=== PATIENT | male | born 1935 | race Caucasian/White ===

== ENCOUNTER 2018-10-31 18:39 | Observation (INO) | payer OTHER, SELFPAY ==
--- NOTE | 2018-10-31 | DI.US.S_ITS ---
PROCEDURE: US PERIPH VENOUS LOW EXTREM BI INDICATIONS: Pulmonary Embolism. TECHNIQUE: Real-time imaging, as well as color and pulse Doppler interrogation, were performed of the deep veins of both legs from the inguinal ligament to the popliteal fossa. COMPARISON: None. FINDINGS: Right: The common femoral, femoral and popliteal veins are normally compressible, and free of intraluminal thrombus. Color and pulse Doppler demonstrate normal phasic intravascular flow. There is Left: The common femoral, femoral and popliteal veins are normally compressible, and free of intraluminal thrombus. Color and pulse Doppler demonstrate normal phasic intravascular flow. There is nonocclusive thrombus present within left peroneal vein. IMPRESSION: 1. Nonocclusive thrombosis involving the left peroneal vein. A repeat study in one week could be performed to assess for proximal propagation as clinically indicated. 2. No DVT identified within the left lower extremity. Report given to Dr. Agustin at 1120 hrs. 11/01/18. Dictated by: Lucian MODI Interpreted: Montrell Gunter MD on 11/01/2018 at 11:04 Approved by: Montrell Gunter M.D. on 11/01/2018 at 13:34
[2018-10-31 18:48] VITALS: BP 166/87; PULSE 87; RESP 15; TEMP 36.6; O2SAT 98
--- NOTE | 2018-10-31 18:59 | DI.RAD.S_ITS ---
PROCEDURE: XR CHEST 2V INDICATIONS: Right sided chest pain TECHNIQUE: 2 views of the chest were acquired. COMPARISON: None. FINDINGS: Surgical changes and devices: None. Lungs and pleura: Lungs are clear. No pleural effusions or pneumothorax. Mediastinum: Mediastinal contours are normal. Heart size is normal. Bones and chest wall: No suspicious bony abnormalities. Soft tissues appear unremarkable. IMPRESSION: Normal for age, source of current right-sided chest pain symptoms is not seen. Dictated by: Zeus Denson M.D. on 10/31/2018 at 19:19 Approved by: Zeus Denson M.D. on 10/31/2018 at 19:19
[2018-10-31 19:14] LABS: Add Manual Diff / Slide Review NO; Basophils Absolute Auto 100 /uL (0-100); Basophils Percent Auto 0.5 % (0-2); Eosinophils Absolute Auto 300 /uL (0-450); Eosinophils Percent Auto 3.1 % (2-4); Hematocrit 42.1 % (41-53); Hemoglobin 14.4 g/dL (13.5-17.5); Lymphocytes Absolute Auto 1800 /uL (1100-4500); Lymphocytes Percent Auto 16.8 % (25-40); Mean Corpuscular HGB Conc 34.1 % (30-36); Mean Corpuscular Hemoglobin 30.7 PG (26-34); Mean Corpuscular Volume 89.9 fL (80-100); Monocytes Absolute Auto 1200 /uL (0-900); Monocytes Percent Auto 10.7 % (3-14); Neutrophils Absolute Auto 7500 /uL (1500-7000); Neutrophils Percent Auto 68.9 % (50-75); Platelet Count 250 X10^3/uL (150-400); Red Blood Cell Count 4.69 X10^6/uL (4.5-5.9); Red Cell Distribution Width 13.7 % (11.6-14.8); White Blood Cell Count 10.9 X10^3/uL (4.5-11.0)
[2018-10-31 19:19] LABS: D Dimer 502 ng/mL (<230); PTT Partial Thromboplastin Tim 37 SECONDS (26.4-36.2)
[2018-10-31 19:20] LABS: Prothrombin Time 11.9 SECONDS (10.1-12.7)
[2018-10-31 19:21] LABS: Creatine Kinase 74 U/L (55-170)
[2018-10-31] MEDS: LIDOCAINE PATCH 1 EACH ADH..PATCH TOP (19:21)
[2018-10-31 19:22] LABS: BUN Creatinine Ratio 14.4 (6-22); Blood Urea Nitrogen 13 mg/dL (9-20); Calcium 9.8 mg/dL (8.4-10.2); Carbon Dioxide 29 mmol/L (22-32); Chloride 98 mmol/L (98-107); Estimated Glomerular Filt Rate > 60.0 mL/min (>60); Glucose 114 mg/dL (80-110); HEMOLYSIS 27 (0-50); Magnesium 1.5 mg/dL (1.6-2.3); Sodium 138 mmol/L (137-145)
[2018-10-31 19:33] LABS: Troponin I 0.019 ng/mL (0.01-0.034)
--- NOTE | 2018-10-31 19:41 | DI.CT.S_ITS ---
PROCEDURE: CT ANGIO CHEST PE PROTOCOL INDICATIONS: pleuritic chest pain, recent travel, elevated D dimer TECHNIQUE: After the administration of intravenous contrast, 2 mm thick sections acquired from the pulmonary apices to the posterior costophrenic angles. 3-dimensional maximum intensity projection (MIP) coronal and sagittal reformats were then acquired through the thorax. For radiation dose reduction, the following was used: automated exposure control, adjustment of mA and/or kV according to patient size. COMPARISON: None. FINDINGS: Image quality: Excellent. Pulmonary arteries: Pulmonary arteries are normal in size, but demonstrate definite multifocal intraluminal filling defects diagnostic of central pulmonary embolism. These emboli appear acute, are best seen at the right lung base but also present at the left lower lobe, left upper lobe, and the right upper lobe. Lungs and pleura: Lungs are clear. No pleural effusions or pneumothorax. Central and peripheral airways are patent. Mediastinum: Heart size is normal, without pericardial effusion. No mediastinal or hilar adenopathy. Thoracic aorta is normal in caliber and enhancement. Esophagus is normal in caliber, without hiatal hernia. Bones and chest wall: No suspicious bony lesions. Ribs and thoracic spine appear intact throughout. Thyroid gland appears normal where well seen.. No axillary or supraclavicular adenopathy. Abdomen: Visualized upper abdominal solid organs appear normal in the early arterial phase of enhancement. IMPRESSION: Scattered bilateral pulmonary emboli most prominently seen at the right lower lobe but also present within the left lower lobe, and both upper lobes. A no airspace disease is seen that would indicate presence of pulmonary infarction. Findings immediately called to the emergency room physician caring for the patient. Dictated by: Zeus Denson M.D. on 10/31/2018 at 20:25 Approved by: Zeus Denson M.D. on 10/31/2018 at 20:30
[2018-10-31 19:54] LABS: Bacteria Urine None Seen
[2018-10-31 20:08] LABS: RBC Urine 1-5/HPF (0-5/HPF); WBC Urine None Seen (0-5/HPF)
[2018-10-31 20:09] LABS: Culture Indicated Urine Cult Not Indicated; Mucus Urine 1+ (Negative)
[2018-10-31 20:15] VITALS: BP 168/76; PULSE 66; RESP 17; O2SAT 96
--- NOTE | 2018-10-31 20:32 | ED_ITS ---
HPI - Back Pain/Injury General Chief Complaint: Back Pain/Injury Stated Complaint: pain in right side, hard to breathe Time Seen by Provider: 10/31/18 18:40 Source: patient and family Mode of arrival: ambulatory Limitations: no limitations History of Present Illness HPI Narrative: 83-year-old male former smoker with coronary artery disease, hypertension and hyperlipidemia as well as non insulin dependent diabetes presents with sharp, stabbing reproducible right-sided rib pain that started suddenly this morning at 4:00 a.m.. He denies cardiac equivalent such as dizziness, weakness or lightheadedness but does feel a bit fatigued. He has no nausea, vomiting or diaphoresis. He denies any injury. He has had a bit of a dry cough but denies hemoptysis. Five weeks ago he flew here from the [facility]. He denies any history of cancer or blood clot Onset (ago): hour(s) Duration: constant Similar Symptoms Previously: No Location: right lower back Severity: moderate Quality: sharp Radiation: none Relieving factors: none Exacerbating factors: deep breaths Related Data Home Medications Medication Instructions Recorded Confirmed atorvastatin 10 mg PO BEDTIME 10/31/18 10/31/18 clopidogrel 75 mg PO DAILY 10/31/18 10/31/18 lisinopril-hydrochlorothiazide 1 tab PO DAILY 10/31/18 10/31/18 metformin 500 mg PO BID 10/31/18 10/31/18 Allergies Allergy/AdvReac Type Severity Reaction Status Date / Time No Known Drug Allergies Allergy Verified 10/31/18 18:48 Review of Systems Constitutional Constitutional: Denies chills, Denies fatigue, Denies fever(s), Denies frequent falls, Denies lethargy and Denies weakness Eyes Eyes: Denies change in vision, Denies eye discharge, Denies irritation and Denies loss of vision ENT Ears, Nose, Mouth, and Throat: Denies change in voice, Denies dizziness, Denies neck pain, Denies sore throat and Denies throat swelling Cardiovascular Cardiovascular: Reports chest pain (right lateral ribs), Denies irregular heart rhythm, Denies lightheadedness, Denies palpitations, Denies dyspnea, Denies dyspnea on exertion and Denies orthopnea Respiratory Respiratory: Denies cough, Denies dyspnea, Denies dyspnea on exertion and Denies wheezing Gastrointestinal Gastrointestinal: Denies abdominal pain, Denies change in bowel habits, Denies diarrhea, Denies nausea and Denies vomiting Genitourinary Genitourinary: Denies hematuria, Denies flank pain, Denies urinary incontinence and Denies urinary urgency Musculoskeletal Musculoskeletal: Denies back pain, Denies muscle weakness, Denies neck pain, Denies numbness and Denies tingling Integumentary/Breasts Skin/Breast: Denies pruritus, Denies erythema, Denies rash and Denies wounds Neurologic Neurologic: Denies behavioral changes, Denies confusion, Denies dizziness, Denies frequent falls, Denies loss of vision, Denies numbness, Denies tingling and Denies weakness Psychiatric Psychiatric: Denies anxiety, Denies behavioral changes, Denies confusion, Denies depression, Denies homicidal ideation and Denies suicidal ideation Endocrine Endocrine: Denies fatigue, Denies flushing and Denies palpitations Hematologic/Lymphatic Hematologic/Lymphatic: Denies easy bruising Allergic/Immunologic Allergic/Immunologic: Denies urticaria, Denies throat swelling and Denies wheezing [facility] Medical History Coronary artery disease (Acute) Diabetes type 2, controlled (Acute) Hypertension (Acute) Kidney stones (Acute) Pulmonary embolism on right (Acute) Surgical History History of coronary artery stent placement (Acute) History of foot surgery (Acute) Social History Smoking Status: Unknown if ever smoked Social History household members: none Smoking Status: Former smoker alcohol intake: former Exam Narrative Exam Narrative: GENERAL: [83] year old patient appears stated age. Well- nourished, well-developed patient, in mild distress. HEAD: Atraumatic. Normocephalic. EYES: Pupils equal round and reactive. Extraocular motions intact. No scleral icterus. No injection or drainage. ENT: Nose without bleeding, purulent drainage. Throat without erythema, tonsillar hypertrophy or exudate. Airway patent. NECK: Trachea midline. Non tender CARDIOVASCULAR: Reproducible right lateral chest pain to palpation Regular rate and rhythm without murmurs, gallops, or rubs. RESPIRATORY: Clear to auscultation. Breath sounds equal bilaterally. No wheezes, rales, or rhonchi. GASTROINTESTINAL: Abdomen soft, non-tender, nondistended. EXTREMITIES: No edema or joint tenderness. BACK: Nontender without deformity or crepitance. No flank tenderness. NEURO: AOx3. SKIN: No rash or erythema of visible areas Initial Vital Signs Initial Vital Signs: Vital Signs Temperature 97.9 F 10/31/18 18:48 Pulse Rate 87 10/31/18 18:48 Respiratory Rate 15 10/31/18 18:48 Blood Pressure 166/87 H 10/31/18 18:48 Pulse Oximetry 98 10/31/18 18:48 Course Orders Ordered: ED Orders 10/31/18 18:46 B Type Natriuretic Peptide Stat Basic Metabolic Panel Stat Complete Blood Count AUTO DIFF Stat D Dimer Stat Magnesium Stat Partial Thromboplastin Time Stat Prothrombin Time INR Stat Troponin & CK Cardiac Panel Stat 10/31/18 18:59 XR chest 2V Stat 10/31/18 19:41 CT angio chest PE protocol Stat 10/31/18 19:43 Urine Microscopic Stat 10/31/18 22:16 Consult to Discharge Planning Routine Education, smoking cessation ONGOING 10/31/18 22:24 Consult to Respiratory Therapy Evaluate & Treat EC echo doppler complete Urgent 10/31/18 23:55 Troponin I Urgent 11/01/18 05:00 Basic Metabolic Panel Routine Complete Blood Count AUTO DIFF Routine Magnesium Routine Troponin I Routine Acetaminophen (Tylenol) 650 mg PO Q6HR PRN PRN Reason: As Needed for Fever/Mild Pain Al Hydrox/Mg Hydrox/Simethicone (Maalox Plus) 30 ml PO Q6HR PRN PRN Reason: Dyspepsia Bisacodyl (Dulcolax) 10 mg PO DAILY PRN PRN Reason: Constipation Calcium Carbonate (Tums) 1,000 mg PO Q4HR PRN PRN Reason: Dyspepsia Dextrose (D50w) 25 gm IV PRN PRN; Protocol PRN Reason: Hypoglycemia Docusate Sodium (Colace) 100 mg PO BID PRN PRN Reason: Constipation Enoxaparin Sodium (Lovenox) 110 mg 1 mg/kg (110 mg) SUBCUT BID CHARLES Sodium Chloride (Normal Saline 0.9%) 1,000 mls @ 84 mls/hr IV CONT CHARLES Last Admin: 11/01/18 01:23 Dose: 84 mls/hr Documented by: CHENG Insulin Aspart (Novolog Flexpen) 0 unit SUBCUT ACHS CHARLES; Protocol Morphine Sulfate (Morphine) 2 mg IV Q4HR PRN PRN Reason: Pain, Moderate (4-6) Last Admin: 11/01/18 02:04 Dose: 2 mg Documented by: Admin: 10/31/18 22:23 Dose: 2 mg Documented by: DAMARIS Naloxone HCl (Narcan) 0.2 mg IV Q2MIN PRN PRN Reason: Opiate Reversal Ondansetron HCl (Zofran) 4 mg IV Q8HR PRN PRN Reason: Nausea And Vomiting Discontinued Medications Enoxaparin Sodium (Lovenox) 110 mg 1 mg/kg (110 mg) SUBCUT BID CHARLES Last Admin: 10/31/18 21:47 Dose: 110 mg Documented by: DAMARIS Influenza Virus Vaccine (Flu Vaccine) 0.5 ml IM .ONCE ONE Stop: 11/01/18 02:01 Lidocaine (Lidoderm) 1 each TOP NOW ONE Stop: 10/31/18 19:00 Last Admin: 10/31/18 19:21 Dose: 1 each Documented by: DAMARIS Vital Signs Vital signs: Vital Signs - 8 hr 10/31/18 18:48 10/31/18 20:15 10/31/18 21:41 Temperature 97.9 F Pulse Rate 87 66 69 Respiratory Rate 15 17 22 Blood Pressure 166/87 H Blood Pressure [Left Arm] 168/76 H 166/76 H Pulse Oximetry 98 96 95 10/31/18 22:12 Temperature Pulse Rate 75 Respiratory Rate 23 Blood Pressure Blood Pressure [Left Arm] 163/79 H Pulse Oximetry 96 MDM - Back Pain/Injury Lab Data Result diagrams: 10/31/18 18:46 10/31/18 18:46 Labs: Lab Results 10/31/18 10/31/18 10/31/18 Range/Units 18:46 18:46 18:46 WBC 10.9 (4.5-11.0) X10^3/uL RBC 4.69 (4.5-5.9) X10^6/uL Hgb 14.4 (13.5-17.5) g/dL Hct 42.1 (41-53) % MCV 89.9 (80-100) fL MCH 30.7 (26-34) PG MCHC 34.1 (30-36) % RDW 13.7 (11.6-14.8) % Plt Count 250 (150-400) X10^3/uL Neut % (Auto) 68.9 (50-75) % Lymph % (Auto) 16.8 L (25-40) % [place] % (Auto) 10.7 (3-14) % Eos % (Auto) 3.1 (2-4) % Baso % (Auto) 0.5 (0-2) % Neut # (Auto) 7500 H (1194-4477) /uL Lymph # (Auto) 1800 (5431-9662) /uL [place] # (Auto) 1200 H (0-900) /uL Eos # (Auto) 300 (0-450) /uL Baso # (Auto) 100 (0-100) /uL PT (10.1-12.7) SECONDS INR (0.9-1.3) APTT 37 H (26.4-36.2) SECONDS D-Dimer 502 H (<230) ng/mL Sodium (137-145) mmol/L Potassium (3.4-5.1) mmol/L Chloride (98-107) mmol/L Carbon Dioxide (22-32) mmol/L BUN (9-20) mg/dL Creatinine (0.66-1.25) mg/dL Estimated GFR (>60) mL/min BUN/Creatinine Ratio (6-22) Glucose (80-110) mg/dL Hemoglobin A1c (4.0-6.0) % Calcium (8.4-10.2) mg/dL Magnesium (1.6-2.3) mg/dL Total Creatine Kinase 74 (55-170) U/L CK-MB (CK-2) TNP CK-MB (CK-2) Rel Index TNP Troponin I 0.019 (0.01-0.034) ng/mL B-Natriuretic Peptide (<100) Urine RBC (0-5/HPF) Urine WBC (0-5/HPF) Urine Bacteria (None) Urine Mucus (Negative) Ur Culture Indicated? 10/31/18 10/31/18 10/31/18 Range/Units 18:46 18:46 18:46 WBC (4.5-11.0) X10^3/uL RBC (4.5-5.9) X10^6/uL Hgb (13.5-17.5) g/dL Hct (41-53) % MCV (80-100) fL MCH (26-34) PG MCHC (30-36) % RDW (11.6-14.8) % Plt Count (150-400) X10^3/uL Neut % (Auto) (50-75) % Lymph % (Auto) (25-40) % [place] % (Auto) (3-14) % Eos % (Auto) (2-4) % Baso % (Auto) (0-2) % Neut # (Auto) (4484-0114) /uL Lymph # (Auto) (8529-9334) /uL [place] # (Auto) (0-900) /uL Eos # (Auto) (0-450) /uL Baso # (Auto) (0-100) /uL PT 11.9 (10.1-12.7) SECONDS INR 1.0 (0.9-1.3) APTT (26.4-36.2) SECONDS D-Dimer (<230) ng/mL Sodium 138 (137-145) mmol/L Potassium 4.0 (3.4-5.1) mmol/L Chloride 98 (98-107) mmol/L Carbon Dioxide 29 (22-32) mmol/L BUN 13 (9-20) mg/dL Creatinine 0.90 (0.66-1.25) mg/dL Estimated GFR > 60.0 (>60) mL/min BUN/Creatinine Ratio 14.4 (6-22) Glucose 114 H (80-110) mg/dL Hemoglobin A1c (4.0-6.0) % Calcium 9.8 (8.4-10.2) mg/dL Magnesium 1.5 L (1.6-2.3) mg/dL Total Creatine Kinase (55-170) U/L CK-MB (CK-2) CK-MB (CK-2) Rel Index Troponin I (0.01-0.034) ng/mL B-Natriuretic Peptide < 100 (<100) Urine RBC (0-5/HPF) Urine WBC (0-5/HPF) Urine Bacteria (None) Urine Mucus (Negative) Ur Culture Indicated? 10/31/18 10/31/18 Range/Units 18:46 19:43 WBC (4.5-11.0) X10^3/uL RBC (4.5-5.9) X10^6/uL Hgb (13.5-17.5) g/dL Hct (41-53) % MCV (80-100) fL MCH (26-34) PG MCHC (30-36) % RDW (11.6-14.8) % Plt Count (150-400) X10^3/uL Neut % (Auto) (50-75) % Lymph % (Auto) (25-40) % [place] % (Auto) (3-14) % Eos % (Auto) (2-4) % Baso % (Auto) (0-2) % Neut # (Auto) (8320-1812) /uL Lymph # (Auto) (8662-3088) /uL [place] # (Auto) (0-900) /uL Eos # (Auto) (0-450) /uL Baso # (Auto) (0-100) /uL PT (10.1-12.7) SECONDS INR (0.9-1.3) APTT (26.4-36.2) SECONDS D-Dimer (<230) ng/mL Sodium (137-145) mmol/L Potassium (3.4-5.1) mmol/L Chloride (98-107) mmol/L Carbon Dioxide (22-32) mmol/L BUN (9-20) mg/dL Creatinine (0.66-1.25) mg/dL Estimated GFR (>60) mL/min BUN/Creatinine Ratio (6-22) Glucose (80-110) mg/dL Hemoglobin A1c 6.5 H (4.0-6.0) % Calcium (8.4-10.2) mg/dL Magnesium (1.6-2.3) mg/dL Total Creatine Kinase (55-170) U/L CK-MB (CK-2) CK-MB (CK-2) Rel Index Troponin I (0.01-0.034) ng/mL B-Natriuretic Peptide (<100) Urine RBC 1-5/hpf (0-5/HPF) Urine WBC None seen (0-5/HPF) Urine Bacteria None seen (None) Urine Mucus 1+ H (Negative) Ur Culture Indicated? Cult not indicated Urine Dip Bedside Urine Glucose Negative Bedside Urine Bilirubin - Negative Bedside Urine Ketone +/- 5 Urine Specific [place] 1.015 Bedside Urine Occult Blood +/- Bedside Urine pH 7.0 Bedside Urine Protein +/- 15 Bedside Urine Urobilinogen +/- 1mg Bedside Urine Nitrite - Negative Bedside Urine Leukocytes - Negative Esterase Imaging Data CT scan - chest: Radiologist's impression: [address] [address] [address] Scan Report Signed Patient: Mack Alvares Jr WMR#: [id number] : [id number]:[id number] Age/Sex: 83 / MDate of Service: 10/31/18 Loc: ED Accession Number: [id number] Procedure: CT angio chest PE protocol Ordering Provider: Matthew Roa D.O. PROCEDURE: CT ANGIO CHEST PE PROTOCOL INDICATIONS: pleuritic chest pain, recent travel, elevated D dimer TECHNIQUE: After the administration of intravenous contrast, 2 mm thick sections acquired from the pulmonary apices to the posterior costophrenic angles. 3-dimensional maximum intensity projection (MIP) coronal and sagittal reformats were then acquired through the thorax. For radiation dose reduction, the following was used: automated exposure control, adjustment of mA and/or kV according to patient size. COMPARISON: None. FINDINGS: Image quality: Excellent. Pulmonary arteries: Pulmonary arteries are normal in size, but demonstrate definite multifocal intraluminal filling defects diagnostic of central pulmonary embolism. These emboli appear acute, are best seen at the right lung base but also present at the left lower lobe, left upper lobe, and the right upper lobe. Lungs and pleura: Lungs are clear. No pleural effusions or pneumothorax. Central and peripheral airways are patent. Mediastinum: Heart size is normal, without pericardial effusion. No mediastinal or hilar adenopathy. Thoracic aorta is normal in caliber and enhancement. Esophagus is normal in caliber, without hiatal hernia. Bones and chest wall: No suspicious bony lesions. Ribs and thoracic spine appear intact throughout. Thyroid gland appears normal where well seen.. No axillary or supraclavicular adenopathy. Abdomen: Visualized upper abdominal solid organs appear normal in the early arterial phase of enhancement. IMPRESSION: Scattered bilateral pulmonary emboli most prominently seen at the right lower lobe but also present within the left lower lobe, and both upper lobes. A no airspace disease is seen that would indicate presence of pulmonary infarction. Findings immediately called to the emergency room physician caring for the patient. Dictated by: Zeus Denson M.D. on 10/31/2018 at 20:25 Approved by: Zeus Denson M.D. on 10/31/2018 at 20:30 [facility] Narrative Medical decision making narrative: 83-year-old male cardiac patient presents with sharp, stabbing pleuritic right-sided chest pain after long distance travel. Imaging notes multiple pulmonary emboli. Patient demonstrates no sugge stion of right-sided strain such as EKG findings, biochemical markers or on imaging. His vitals remain stable. He requires hospitalization given his age, number pulmonary emboli and potential for deterioration. He does not meet any criteria for catheter directed lysis Discharge Plan Departure Patient Disposition: Admitted As Inpatient Clinical Impression: Pulmonary embolism on right Discharge Date/Time: 10/31/18 23:57 Admit Date/Time: 10/31/18 22:21 Admit Provider: Ayad Schulz
[2018-10-31 21:10] LABS: B Type Natriuretic Peptide < 100 (<100)
[2018-10-31 21:41] VITALS: BP 166/76; PULSE 69; RESP 22; O2SAT 95
[2018-10-31] MEDS: ENOXAPARIN 100 MG/ML SYRINGE 110 MG SUBCUT (21:47)
--- NOTE | 2018-10-31 22:10 | PC.NURSE ---
DEDRICK Fernandez here to see pt. He is aware that pt is requesting pain medication.
[2018-10-31 22:12] VITALS: BP 163/79; PULSE 75; RESP 23; O2SAT 96
[2018-10-31] MEDS: MORPHINE 2 MG/ML INJ IV (22:23)
--- NOTE | 2018-10-31 22:24 | DI.ECHO.S_ITS ---
[facility] +---------+ [facility] +---------+ : : [address] : : : : [id number] : : : : Phone: [phone] Echocardiogram Report + + :Name: TIMOTEO CARRION JR Study Date: 11/02/2018 Height: 70 in : [facility] Weight: 246 lb : : Gender: Male BSA: 2.3 m2 : :: 1935 Age: 83 yrs BP: 147/87 mmHg: :Reason For Study: B/L sub segmental PE : :Ordering Physician: Lexi : :Hospitalist Performed By: Britni Page : :Referring: KARL DILLON : + + Interpretation Summary The right ventricle is normal in size and function. Pulmonary artery pressures cannot be estimated because of the lack of a measurable TR jet velocity but the IVC suggests a CVP of around 3 mmHg. The left ventricular ejection fraction is normal. There is a significant dyssynchronous contraction pattern, consistent with a conduction abnormality. Diastolic parameters suggest a relaxation abnormality of the left ventricle, consistent with probable normal filling pressures. No hemodynamically significant valvular abnormalities. Procedure: A two-dimensional transthoracic echocardiogram with color flow and Doppler was performed. The study quality was technically adequate. There is no prior echocardiogram noted for this patient. The heart rate ranged between 59-82 bpm during the study. Left Ventricle: The left ventricle is normal in size. Left ventricular wall thickness is at the upper limits of normal. The ejection fraction is estimated to be 50-55%. The left ventricular ejection fraction is normal. There is a significant dyssynchronous contraction pattern, consistent with a conduction abnormality. There are no other obvious focal wall motion abnormalities. Diastolic parameters suggest a relaxation abnormality of the left ventricle, consistent with probable normal filling pressures. Right Ventricle: The right ventricle is normal in size and function. Atria: The left atrium is mildly dilated. Right atrial size is normal. There is no Doppler evidence for an interatrial shunt. Mitral Valve: The mitral valve leaflets appear mildly thickened, but open well. There is trace mitral regurgitation. Aortic Valve: The aortic valve is not well visualized. The aortic valve opens well. There is trace aortic regurgitation. Tricuspid Valve: The tricuspid valve is normal in structure and function. There is a trace or physiologic amount of tricuspid regurgitation. Pulmonary artery pressures cannot be estimated because of the lack of a measurable TR jet velocity but the IVC suggests a CVP of around 3 mmHg. Pulmonic Valve: The pulmonic valve is not well visualized. There is trace pulmonic regurgitation. Great Vessels: The aortic root is normal size. The ascending aorta is mildly enlarged. The pulmonary is not well visualized. The IVC is of normal diameter and collapses greater than 50% with a sniff. This suggests a low right atrial pressure of 3 mm Hg. Pericardium/ Pleura There is no pericardial effusion. There is no pleural effusion. MMode/2D Measurements & Calculations LVIDd: 4.7 cm Ao root diam: 3.4 cm LVIDs: 3.7 cm asc Aorta Diam: 3.9 cm FS: 20.7 % EPSS: 1.2 cm IVSd: 0.98 cm LVPWd: 0.98 cm LV marsh. diameter/BSA (cm/m^2): 2.0 LV sys. diameter/BSA (cm/m^2): 1.6 LA A2 area: 25.5 cm2 RA long axis: 5.4 cm LA A4 area: 27.7 cm2 RA area: 17.6 cm2 LA length (vol): 6.0 cm RA vol: 48.5 ml LA vol: 99.9 ml RA : 21.3 ml/m2 LA vol index: 43.8 ml/m2 IVC diam: 1.5 cm RVD1 (basal): 4.5 cm RVD2 (mid): 3.7 cm TAPSE: 1.9 cm Doppler Measurements & Calculations Ao V2 max: 126.1 cm/sec LVOT Max [place]: 86.4 cm/sec Ao V2 mean: 94.6 cm/sec LV V1 max P.0 mmHg Ao max P.4 mmHg LV V1 VTI: 15.7 cm Ao mean P.8 mmHg sev ratio: 0.69 Ao V2 VTI: 22.6 cm MV E max layton: 64.9 cm/sec PA V2 max: 102.6 cm/sec MV A max lay[place]: 94.4 cm/sec PA V2 mean: 61.9 cm/sec MV E/A: 0.69 PA mean P.8 mmHg Med Peak E' [place]: 6.0 cm/sec PA Accel Time: 0.07 sec E/E' med: 10.8 Lat Peak E' [place]: 15.2 cm/sec E/E' lat: 4.3 E/e' average: 7.6 MV dec time: 0.27 sec MV P1/2t: 77.4 msec KADEN 2t max lay[place]: 64.5 cm/sec MVA(): 2.8 cm2 Electronically signed by: Justin Baer M.D. on Reading Physician:11/02/2018 02:38 PM
[2018-10-31 23:48] LABS: Hemoglobin A1C% w Est Avg Glu 6.5 % (4.0-6.0)
[2018-10-31 23:55] VITALS: BP 141/63; PULSE 70; RESP 17; O2SAT 93
[2018-11-01] VITALS (11 sets, daily range): BP systolic 126–150; BP diastolic 59–82; PULSE 49–69; RESP 16–24; TEMP 36.6–37.7; O2SAT 93–95; BMI 33.8
[2018-11-01 00:22] LABS: Troponin I 0.028 ng/mL (0.01-0.034)
--- NOTE | 2018-11-01 01:01 | PM.HP.1 ---
History of Present Illness History of Present Illness Date Patient Seen: 11/01/18 Time Patient Seen: 19:35 Chief complaint: pain in right side, hard to breathe Narrative: Mr. Frankie Alvares junior is an 83-year-old male patient with history significant for hypertension, coronary artery disease status post stenting, non insulin dependent controlled type 2 diabetes and previous kidney stones who presents to the ER tonight with right-sided chest pain. Patient reports he had a sudden onset of pain at 4:00 a.m. that he describes as sharp and pleuritic. He describes the pain is non radiating and has associated shortness of breath due to inability to take deep breath related to pain. He denies trauma pr recent illness, fevers or chills. He has no prior history of pulmonary disease, does endorse flying here from [place] 5 weeks ago. He currently reports chest pain 5 to 6/10 and denies cough wheezing. Reports no hemoptysis. He denies abdominal pain nausea vomiting diarrhea or constipation. Reports no urinary symptoms and has nocturia 1-2 times nightly. He is otherwise fully independent in his ADLs. Upon arrival in the ER the patient is afebrile with a temperature of 97.9?, heart rate of 87, hypertensive 166/87, respiratory rate of 15 saturating 98% on room air. His chest x-ray is unremarkable finds no reason for his right chest pain. CTA is finding: Scattered bilateral pulmonary emboli most prominently seen at the right lower lobe but also present within the left lower lobe, and both upper lobes. On laboratory analysis patient has white blood cell count of 10.9, hemoglobin of 14.4 and hematocrit of 42.1. His platelet count is 250. On coagulation has a PT of 11.9 and INR 1.0 with a PTT of 37 and D-dimer of 502. His chemistries are all within limits and has a nonfasting glucose 114. His magnesium is 1.5 and he has a troponin 0.019 and a BNP of less than 100. The patient is admitted to the hospital for initiation anticoagulant therapy monitoring and further evaluation. Patient History Medical History Coronary artery disease (Acute) Diabetes type 2, controlled (Acute) Hypertension (Acute) Kidney stones (Acute) Pulmonary embolism on right (Acute) Surgical History History of coronary artery stent placement (Acute) History of foot surgery (Acute) Social History Smoking Status: Unknown if ever smoked Family & Social History Safety & Behavioral: Feels Safe in Current Yes Environment Been Physically Hurt or No Threatened By a Person Tobacco & Substance use: Smoking Status Unknown if ever smoked alcohol intake frequency holiday/special occasion Substance Use Type does not use Comment: Patient resides in [place] and has been here visiting for 5 weeks. Patient states he is due to return to [place] on November 18. His parents of both , his father at age 55 with a cerebral hemorrhage and his mother from complications of pneumonia. He has 2 sisters who he describes is in good health. Occupation: Retired Smoking: Patient endorses a 10 year history of smoking 1 pack per day quitting 40 years ago. Alcohol: Moderate consumption in the past, now drinks occasionally 1-2 drinks per month. Substance use: Patient denies recreation pharmaceuticals herbal or cannabis products. Advanced directives: The patient has no formal advanced directive and states his wish to be FULL CODE. He designates his son Harris to be his surrogate decision maker. Meds Home Medications and Allergies Home Medications Medication Instructions Recorded Confirmed Type atorvastatin 10 mg PO BEDTIME 10/31/18 10/31/18 History clopidogrel 75 mg PO DAILY 10/31/18 10/31/18 History lisinopril-hydrochlorothiazide 1 tab PO DAILY 10/31/18 10/31/18 History metformin 500 mg PO BID 10/31/18 10/31/18 History Allergies Allergy/AdvReac Type Severity Reaction Status Date / Time No Known Drug Allergies Allergy Verified 10/31/18 18:48 Review of Systems Review of Systems ROS Unobtainable: All systems reviewed & are unremarkable except as noted in HPI and below Exam Vital Signs (past 8 hours): - 10/31/18 18:48 10/31/18 20:15 10/31/18 21:41 Temperature 97.9 F Pulse Rate 87 66 69 Respiratory Rate 15 17 22 Blood Pressure 166/87 H Blood Pressure [Left Arm] 168/76 H 166/76 H Pulse Oximetry 98 96 95 10/31/18 22:12 10/31/18 23:55 11/01/18 00:10 Temperature 97.9 F Pulse Rate 75 70 65 Respiratory Rate 23 17 18 Blood Pressure 147/82 H Blood Pressure [Left Arm] 163/79 H 141/63 H Pulse Oximetry 96 93 94 Oxygen Delivery Method Room Air Narrative Exam Narrative: GENERAL APPEARANCE: well developed, obese male, in moderate discomfort. HEAD: Normocephalic, atraumatic, no scalp lesions. EYES: pupils equal, round, reactive to light and accommodation, sclera non-icteric, extraocular movement intact without nystagmus. EARS: normal external structures, no ear pain NOSE: sinuses non tender to percussion, no rhinorrhea ORAL CAVITY: mucosa moist without lesions or exudate THROAT: normal, no erythema. NECK/THYROID: neck supple, no jugular venous distention, no carotid bruit, no thyromegaly, trachea midline. LYMPH NODES: no cervical or supraclavicular lymphadenopathy. SKIN: warm and dry, no suspicious lesions, no rashes, good turgor. HEART: regular rate and rhythm, S1-S2 without murmur, no rubs or gallops, brisk capillary refill, no edema LUNGS: clear to auscultation bilaterally, no coarseness crackles or wheezing, no cough present CHEST: Shallow respirations, pain on deep inspiration, symmetrical movement, no accessory muscle use, no pain to AP and lateral compression. ABDOMEN: Soft, no distention, no abdominal pain on palpation, no organomegaly, no flank or suprapubic tenderness, active bowel tones. BACK: Nontender to palpation, no pain with straight leg raise EXTREMITIES: moves all extremities, strength is 5/5 and symmetrical, no deformities or joint effusions, no leg or calf tenderness, negative Hohmann sign. NEUROLOGIC: AAO x4, no focal neurologic deficits, motor strength normal upper and lower extremities, sensory exam intact to light touch, hearing grossly normal to speech. PSYCH: alert, cognitive function intact, good eye contact, appropriate with stable behavior Objective Labs Result Diagrams: 10/31/18 18:46 10/31/18 18:46 Labs: Laboratory Results - last 24 hr 10/31/18 10/31/18 10/31/18 18:46 18:46 18:46 WBC 10.9 RBC 4.69 Hgb 14.4 Hct 42.1 MCV 89.9 MCH 30.7 MCHC 34.1 RDW 13.7 Plt Count 250 Neut % (Auto) 68.9 Lymph % (Auto) 16.8 L [place] % (Auto) 10.7 Eos % (Auto) 3.1 Baso % (Auto) 0.5 Neut # (Auto) 7500 H Lymph # (Auto) 1800 [place] # (Auto) 1200 H Eos # (Auto) 300 Baso # (Auto) 100 PT INR APTT 37 H D-Dimer 502 H Sodium Potassium Chloride Carbon Dioxide BUN Creatinine Estimated GFR BUN/Creatinine Ratio Glucose Hemoglobin A1c Calcium Magnesium Total Creatine Kinase 74 CK-MB (CK-2) TNP CK-MB (CK-2) Rel Index TNP Troponin I 0.019 B-Natriuretic Peptide Urine RBC Urine WBC Urine Bacteria Urine Mucus Ur Culture Indicated? 10/31/18 10/31/18 10/31/18 18:46 18:46 18:46 WBC RBC Hgb Hct MCV MCH MCHC RDW Plt Count Neut % (Auto) Lymph % (Auto) [place] % (Auto) Eos % (Auto) Baso % (Auto) Neut # (Auto) Lymph # (Auto) [place] # (Auto) Eos # (Auto) Baso # (Auto) PT 11.9 INR 1.0 APTT D-Dimer Sodium 138 Potassium 4.0 Chloride 98 Carbon Dioxide 29 BUN 13 Creatinine 0.90 Estimated GFR > 60.0 BUN/Creatinine Ratio 14.4 Glucose 114 H Hemoglobin A1c Calcium 9.8 Magnesium 1.5 L Total Creatine Kinase CK-MB (CK-2) CK-MB (CK-2) Rel Index Troponin I B-Natriuretic Peptide < 100 Urine RBC Urine WBC Urine Bacteria Urine Mucus Ur Culture Indicated? 10/31/18 10/31/18 10/31/18 18:46 19:43 23:55 WBC RBC Hgb Hct MCV MCH MCHC RDW Plt Count Neut % (Auto) Lymph % (Auto) [place]ance % (Auto) Eos % (Auto) Baso % (Auto) Neut # (Auto) Lymph # (Auto) [place] # (Auto) Eos # (Auto) Baso # (Auto) PT INR APTT D-Dimer Sodium Potassium Chloride Carbon Dioxide BUN Creatinine Estimated GFR BUN/Creatinine Ratio Glucose Hemoglobin A1c 6.5 H Calcium Magnesium Total Creatine Kinase CK-MB (CK-2) CK-MB (CK-2) Rel Index Troponin I 0.028 B-Natriuretic Peptide Urine RBC 1-5/hpf Urine WBC None seen Urine Bacteria None seen Urine Mucus 1+ H Ur Culture Indicated? Cult not indicated Assessment & Plan Assessment & Plan narrative: This is an 83-year-old male patient with acute onset of chest pain at 4:00 a.m. that is sharp and aching, pleuritic in nature. The patient is found have bilateral pulmonary emboli and subsegmental vessels without signs of right ventricular strain. The patient is admitted for further evaluation and initiation of anticoagulants therapy. 1. Acute pulmonary emboli, present on admission, active. -right chest pain with marked pain on deep inspiration. No cough or hemoptysis adequate oxygenation at 98% on room air remainder of vital signs are stable. -CTA: Scattered bilateral pulmonary emboli most prominently seen at the right lower lobe but also present within the left lower lobe, and both upper lobes. -pulmonary embolism severity index is 92, intermediate risk. -patient started on therapeutic Lovenox 1 milligram/kilogram for dose of 110 mg twice daily. -will obtain cardiac echo in the morning. -will obtain venous duplex bilateral lower extremities. -will evaluate insurance coverage for DOAC therapy. 2. Coronary artery disease, chronic, stable. -status post stenting -patient without evidence of ischemia or infarct on EKG. -will continue home regimen of clopidogrel. 3. Type 2 diabetes, chronic, stable -patient takes metformin 500 mg twice daily and did receive contrast during CTA. Good renal function with a BUN of 13 and creatinine 0.9, IV NS 84 mL/hr. -patient is a blood sugar of 114 on admission labs, hemoglobin A1c is 6.5. -will hold patient's home metformin and check blood sugars AC and HS and cover with correctional insulin low range. 4. Hypertension, chronic, stable -patient initially hypertensive upon arrival into the emergency department at 166/87, now improved 141/73. -will continue the patient's home medication regimen of lisinopril/hydrochlorothiazide daily. 5. Hyperlipidemia, chronic, stable. -will continue the patient's home regimen of atorvastatin 10 mg at bedtime. The patient is admitted to the hospital related to severity of pain and risk of complications and adverse events. Patient is admitted as observation with expected length of stay to be less than 2 midnights.
[2018-11-01] MEDS: SODIUM CHLORIDE 0.9% 1,000 ML 84 ML IV (01:23)
[2018-11-01] MEDS: MORPHINE 2 MG/ML INJ IV ×3 (02:04→21:21)
--- NOTE | 2018-11-01 05:43 | PC.ADMIT ---
Pt admitted to room 204 from ER. Pt experiencing right side flank pain with deep inspirations. Found to have mult pulmonary embolisms. More on the right side thatn left side. Pt con't to report mild pain on right side with inspiration. D-dimer elevated. Denies SOB at rest or with ambulation. No hemoptysis. No cough noted. On BID subQ lovenox. Pt unfamiliar with new diagnosis. Printed patient information for Pulmonary Embolism from [facility] and provided to patient. Pt will need flu vaccine after provider co-signs order. Plan for cardiac ECHO, venous duplex today. Admission Note: The patient,Mack Alvares Jr,83 y/o, was given written information regarding hospital policies, unit procedures and contact persons. Patient's smoking status: Former smoker. Vital Signs - 8 hr 10/31/18 22:12 10/31/18 23:55 11/01/18 00:10 Temperature 97.9 F Pulse Rate 75 70 65 Respiratory Rate 23 17 18 Blood Pressure 147/82 H Blood Pressure [Left Arm] 163/79 H 141/63 H Pulse Oximetry 96 93 94 11/01/18 02:16 11/01/18 04:00 Temperature 97.8 F Pulse Rate 60 Respiratory Rate 18 Blood Pressure 126/64 Blood Pressure [Left Arm] Pulse Oximetry 94 95
[2018-11-01 06:23] LABS: Add Manual Diff / Slide Review NO; Basophils Absolute Auto 100 /uL (0-100); Basophils Percent Auto 0.6 % (0-2); Eosinophils Absolute Auto 300 /uL (0-450); Hematocrit 38.6 % (41-53); Hemoglobin 13.2 g/dL (13.5-17.5); Lymphocytes Absolute Auto 2200 /uL (1100-4500); Lymphocytes Percent Auto 22.9 % (25-40); Mean Corpuscular HGB Conc 34.1 % (30-36); Mean Corpuscular Hemoglobin 30.4 PG (26-34); Mean Corpuscular Volume 89.1 fL (80-100); Monocytes Absolute Auto 1100 /uL (0-900); Monocytes Percent Auto 11.7 % (3-14); Neutrophils Absolute Auto 6100 /uL (1500-7000); Neutrophils Percent Auto 61.8 % (50-75); Platelet Count 207 X10^3/uL (150-400); Red Blood Cell Count 4.34 X10^6/uL (4.5-5.9); Red Cell Distribution Width 13.9 % (11.6-14.8); White Blood Cell Count 9.8 X10^3/uL (4.5-11.0)
[2018-11-01 06:35] LABS: Blood Urea Nitrogen 12 mg/dL (9-20); Calcium 8.9 mg/dL (8.4-10.2); Carbon Dioxide 30 mmol/L (22-32); Chloride 99 mmol/L (98-107); Estimated Glomerular Filt Rate > 60.0 mL/min (>60); Glucose 125 mg/dL (80-110); HEMOLYSIS < 15 (0-50); Magnesium 1.5 mg/dL (1.6-2.3); Potassium 4.4 mmol/L (3.4-5.1); Sodium 137 mmol/L (137-145)
[2018-11-01 06:46] LABS: Troponin I 0.026 ng/mL (0.01-0.034)
[2018-11-01] MEDS: MAGNESIUM SULFATE 2 GM/50 ML PIGGYBACK IV (07:42)
[2018-11-01] MEDS: ENOXAPARIN 100 MG/ML SYRINGE 110 MG SUBCUT (07:42)
[2018-11-01] MEDS: ACETAMINOPHEN 325 MG TABLET 650 MG PO ×2 (07:47→16:16)
[2018-11-01] MEDS: hydroCHLOROthiazide 25 MG TABLET PO (12:34)
[2018-11-01] MEDS: INSULIN ASPART 100 UNIT/ML INSULN PEN SUBCUT (12:34)
[2018-11-01] MEDS: CLOPIDOGREL 75 MG TABLET PO (12:34)
[2018-11-01] MEDS: LISINOPRIL 20 MG TABLET PO (12:34)
--- NOTE | 2018-11-01 16:14 | CM.DANOTE ---
Discharge Planning/Care Management DCP: assessment: initiated. Case received and discussed in Team Rounds this morning. EMR reviewed. Pt is an 83 year old male who has been traveling and expects to d/c back to his home in [facility] this month. Admitted last night to care of hospitalist team and with dx of bilateral PE's. Payer: [employer] Medicare Admission status: OBS: confirmed by UR RN Isma. P: pt is not expected to d/c today. Either Dr. Agustin or Dr. Guzman are seeing him today. Due to lateness of hour will check in with pt tomorrow morning and follow to complete the assessment process and assist with any d/c needs that may arise. CM Discharge Assessment Start: 11/01/18 16:12 Freq: Status: Active Protocol: Document 11/01/18 16:13 ITV (Rec: 11/01/18 16:13 ITV [id number]) Discharge Planning Assessment Advance Directives? No History Provided By Medical Record Prior Living Arrangements Apartment/Condo Independent with ADL's Yes Is patient alert and oriented? Yes Review Status In Process
--- NOTE | 2018-11-01 16:20 | PM.PN.1 ---
Subjective Subjective Date Patient Seen: 11/01/18 Interval history: He is seen today to follow-up his bilateral pulmonary embolus and left leg DVT, coronary disease, diabetes mellitus, hypertension, hyperlipidemia. He was also low on magnesium which has been treated. His troponin has peaked at 0.028. The venous Doppler of the left leg shows a nonocclusive left peroneal clot. Exam Vital Signs (past 8 hours): - 11/01/18 09:26 11/01/18 11:00 Temperature 97.8 F Pulse Rate 63 49 L Respiratory Rate 20 20 Blood Pressure 137/59 L Pulse Oximetry 93 95 Oxygen Delivery Method Room Air Oxygen Flow Rate 0 Narrative Exam Narrative: Very friendly, alert and oriented x3, no apparent distress. Heart is irregula rate and rhythm without murmur. Lungs are clear to auscultation bilaterally Extremities have no ankle edema, calf tenderness or obvious signs of DVT. Objective Labs Result Diagrams: 11/01/18 06:10 11/01/18 06:10 Labs: Laboratory Results - last 24 hr 10/31/18 10/31/18 10/31/18 18:46 18:46 18:46 WBC 10.9 RBC 4.69 Hgb 14.4 Hct 42.1 MCV 89.9 MCH 30.7 MCHC 34.1 RDW 13.7 Plt Count 250 Neut % (Auto) 68.9 Lymph % (Auto) 16.8 L [place] % (Auto) 10.7 Eos % (Auto) 3.1 Baso % (Auto) 0.5 Neut # (Auto) 7500 H Lymph # (Auto) 1800 [place] # (Auto) 1200 H Eos # (Auto) 300 Baso # (Auto) 100 PT INR APTT 37 H D-Dimer 502 H Sodium Potassium Chloride Carbon Dioxide BUN Creatinine Estimated GFR BUN/Creatinine Ratio Glucose Hemoglobin A1c Calcium Magnesium Total Creatine Kinase 74 CK-MB (CK-2) TNP CK-MB (CK-2) Rel Index TNP Troponin I 0.019 B-Natriuretic Peptide Urine RBC Urine WBC Urine Bacteria Urine Mucus Ur Culture Indicated? 10/31/18 10/31/18 10/31/18 18:46 18:46 18:46 WBC RBC Hgb Hct MCV MCH MCHC RDW Plt Count Neut % (Auto) Lymph % (Auto) [place] % (Auto) Eos % (Auto) Baso % (Auto) Neut # (Auto) Lymph # (Auto) [place] # (Auto) Eos # (Auto) Baso # (Auto) PT 11.9 INR 1.0 APTT D-Dimer Sodium 138 Potassium 4.0 Chloride 98 Carbon Dioxide 29 BUN 13 Creatinine 0.90 Estimated GFR > 60.0 BUN/Creatinine Ratio 14.4 Glucose 114 H Hemoglobin A1c Calcium 9.8 Magnesium 1.5 L Total Creatine Kinase CK-MB (CK-2) CK-MB (CK-2) Rel Index Troponin I B-Natriuretic Peptide < 100 Urine RBC Urine WBC Urine Bacteria Urine Mucus Ur Culture Indicated? 10/31/18 10/31/18 10/31/18 18:46 19:43 23:55 WBC RBC Hgb Hct MCV MCH MCHC RDW Plt Count Neut % (Auto) Lymph % (Auto) [place] % (Auto) Eos % (Auto) Baso % (Auto) Neut # (Auto) Lymph # (Auto) [place] # (Auto) Eos # (Auto) Baso # (Auto) PT INR APTT D-Dimer Sodium Potassium Chloride Carbon Dioxide BUN Creatinine Estimated GFR BUN/Creatinine Ratio Glucose Hemoglobin A1c 6.5 H Calcium Magnesium Total Creatine Kinase CK-MB (CK-2) CK-MB (CK-2) Rel Index Troponin I 0.028 B-Natriuretic Peptide Urine RBC 1-5/hpf Urine WBC None seen Urine Bacteria None seen Urine Mucus 1+ H Ur Culture Indicated? Cult not indicated 11/01/18 11/01/18 06:10 06:10 WBC 9.8 RBC 4.34 L Hgb 13.2 L Hct 38.6 L MCV 89.1 MCH 30.4 MCHC 34.1 RDW 13.9 Plt Count 207 Neut % (Auto) 61.8 Lymph % (Auto) 22.9 L [place] % (Auto) 11.7 Eos % (Auto) 3.0 Baso % (Auto) 0.6 Neut # (Auto) 6100 Lymph # (Auto) 2200 [place] # (Auto) 1100 H Eos # (Auto) 300 Baso # (Auto) 100 PT INR APTT D-Dimer Sodium 137 Potassium 4.4 Chloride 99 Carbon Dioxide 30 BUN 12 Creatinine 1.00 Estimated GFR > 60.0 BUN/Creatinine Ratio 12.0 Glucose 125 H Hemoglobin A1c Calcium 8.9 Magnesium 1.5 L Total Creatine Kinase CK-MB (CK-2) CK-MB (CK-2) Rel Index Troponin I 0.026 B-Natriuretic Peptide Urine RBC Urine WBC Urine Bacteria Urine Mucus Ur Culture Indicated? Assessment & Plan Assessment & Plan narrative: This is an 83-year-old male patient with acute onset of chest pain at 4:00 a.m. 10/31 that is sharp and aching, pleuritic in nature. The patient was found to have bilateral pulmonary emboli in subsegmental vessels without signs of right ventricular strain. The patient was admitted for further evaluation and initiation of anticoagulant therapy. 1. Acute pulmonary emboli, present on admission, active. -right chest pain with marked pain on deep inspiration, now resolved. No cough or hemoptysis adequate oxygenation at 98% on room air remainder of vital signs are stable. -CTA: Scattered bilateral pulmonary emboli most prominently seen at the right lower lobe but also present within the left lower lobe, and both upper lobes. -pulmonary embolism severity index is 92, intermediate risk. -patient on therapeutic Lovenox 1 milligram/kilogram for dose of 110 mg twice daily. -cardiac echo reading is pending. -left peroneal clot on US. No DVT seen. -evaluate insurance coverage for DOAC therapy. Anticipate discharge on Eliquis in the morning. 2. Coronary artery disease, chronic, stable. -status post stenting -patient without evidence of ischemia or infarct on EKG. Troponins in the normal range. -continue home regimen of clopidogrel. 3. Type 2 diabetes, chronic, stable -patient takes metformin 500 mg twice daily and did receive contrast during CTA. Good renal function with a BUN of 13 and creatinine 0.9, IV NS 84 mL/hr. -patient has a blood sugar of 114 on admission labs, hemoglobin A1c is 6.5. -holding patient's home metformin and check blood sugars AC and HS and cover with correctional insulin low range. 4. Hypertension, chronic, stable -patient initially hypertensive upon arrival into the emergency department at 166/87, now improved -will continue the patient's home medication regimen of lisinopril/hydrochlorothiazide daily. 5. Hyperlipidemia, chronic, stable. -will continue the patient's home regimen of atorvastatin 10 mg at bedtime. Quality VTE Deep Vein Thrombosis/Pulmonary Embolism Present on Admission: Yes
[2018-11-01] MEDS: ENOXAPARIN 60 MG/0.6 ML SYRINGE 110 MG SUBCUT (21:21)
[2018-11-01] MEDS: SODIUM CHLORIDE 0.9% FLUSH 10 ML IV (21:36)
[2018-11-02] VITALS (8 sets, daily range): BP systolic 118–153; BP diastolic 63–83; PULSE 58–71; RESP 15–16; TEMP 36.5–36.9; O2SAT 95–99
[2018-11-02] MEDS: ACETAMINOPHEN 325 MG TABLET 650 MG PO (00:52)
[2018-11-02] MEDS: MORPHINE 2 MG/ML INJ IV (00:59)
[2018-11-02 06:56] LABS: Magnesium 1.9 mg/dL (1.6-2.3)
[2018-11-02] MEDS: ENOXAPARIN 60 MG/0.6 ML SYRINGE 110 MG SUBCUT (08:52)
[2018-11-02] MEDS: CLOPIDOGREL 75 MG TABLET PO (08:53)
[2018-11-02] MEDS: SODIUM CHLORIDE 0.9% FLUSH 10 ML IV (08:54)
[2018-11-02] MEDS: LISINOPRIL 20 MG TABLET PO (08:54)
[2018-11-02] MEDS: hydroCHLOROthiazide 25 MG TABLET PO (08:54)
--- NOTE | 2018-11-02 11:24 | PM.DS.1 ---
History of Present Illness History of Present Illness Date Patient Seen: 11/02/18 Chief complaint: pain in right side, hard to breathe Narrative: Mr. Frankie Alvares junior is an 83-year-old male patient with history significant for hypertension, coronary artery disease status post stenting, non insulin dependent controlled type 2 diabetes and previous kidney stones who presents to the ER tonight with right-sided chest pain. Patient reports he had a sudden onset of pain at 4:00 a.m. that he describes as sharp and pleuritic. He describes the pain is non radiating and has associated shortness of breath due to inability to take deep breath related to pain. He denies trauma pr recent illness, fevers or chills. He has no prior history of pulmonary disease, does endorse flying here from [place] 5 weeks ago. He currently reports chest pain 5 to 6/10 and denies cough wheezing. Reports no hemoptysis. He denies abdominal pain nausea vomiting diarrhea or constipation. Reports no urinary symptoms and has nocturia 1-2 times nightly. He is otherwise fully independent in his ADLs. Upon arrival in the ER the patient is afebrile with a temperature of 97.9?, heart rate of 87, hypertensive 166/87, respiratory rate of 15 saturating 98% on room air. His chest x-ray is unremarkable finds no reason for his right chest pain. CTA is finding: Scattered bilateral pulmonary emboli most prominently seen at the right lower lobe but also present within the left lower lobe, and both upper lobes. On laboratory analysis patient has white blood cell count of 10.9, hemoglobin of 14.4 and hematocrit of 42.1. His platelet count is 250. On coagulation has a PT of 11.9 and INR 1.0 with a PTT of 37 and D-dimer of 502. His chemistries are all within limits and has a nonfasting glucose 114. His magnesium is 1.5 and he has a troponin 0.019 and a BNP of less than 100. The patient is admitted to the hospital for initiation anticoagulant therapy monitoring and further evaluation. Discharge Providers Provider Date of admission: 10/31/18 22:21 Discharge Date: 11/02/18 Consults: 10/31/18 22:16 Consult to Discharge Planning Routine Comment: 10/31/18 22:24 Consult to Respiratory Therapy Evaluate & Treat Comment: Pulmonary embolism Physician Instructions: Evaluate and treat Discharge provider: Wendy Luna MD Summary Hospital Course Discharge Diagnosis: 1. Bilateral pulmonary emboli 2. DVT the left peroneal vein 3. Coronary artery disease status post stent 4. Hypertension 5. Hyperlipidemia 6. Type 2 diabetes, on metformin Hospital Course: The patient was admitted to the hospital for chief complaint of left-sided chest pain. CT angio confirmed bilateral pulmonary emboli. Patient had an ultrasound of the lower extremities which confirmed a left peroneal vein nonocclusive DVT. He was started on Lovenox, and Xarelto. Patient had an echocardiogram to evaluate right ventricular function. The echocardiogram showed the following findings:The right ventricle is normal in size and function. Pulmonary artery pressures cannot be estimated because of the lack of a measurable TR jet velocity but the IVC suggests a CVP of around 3 mmHg. The left ventricular ejection fraction is normal. There is a significant dyssynchronous contraction pattern, consistent with a conduction abnormality. Diastolic parameters suggest a relaxation abnormality of the left ventricle, consistent with probable normal filling pressures. No hemodynamically significant valvular abnormalities. The patient was not hypoxic, had improvement of his chest pain, hemodynamically was stable, and deemed appropriate for discharge home. Patient will be discharged on Xarelto 15 mg twice daily. He is from [place] and will be returning home to [place] in 2 weeks. Status at Discharge Cognitive/behavioral status at discharge: oriented Functional status at discharge: independent ambulation Overall status at discharge: patient is back to baseline Time Spent with Patient Time spent: Less than 30 minutes Exam Vital Signs (past 8 hours): - 11/02/18 04:11 11/02/18 08:00 11/02/18 08:47 Temperature 98.4 F 97.7 F Pulse Rate 60 58 L Respiratory Rate 15 16 Blood Pressure 118/66 153/83 H Pulse Oximetry 95 99 98 11/02/18 08:54 Temperature Pulse Rate Respiratory Rate Blood Pressure 127/77 Pulse Oximetry Fraction of Inspired Oxygen 21 Oxygen Delivery Method Room Air Oxygen Flow Rate 0 Narrative Exam Narrative: Pleasant gentleman in no obvious distress Lungs: Clear to auscultation Cardiac exam: Regular rate and rhythm normal S1-S2 Abdomen: Soft nontender nondistended Extremities: No edema Objective Labs Result Diagrams: 11/01/18 06:10 11/01/18 06:10 Labs: Laboratory Results - last 24 hr 11/02/18 06:35 Magnesium 1.9 Discharge Plan Discharge Plan Patient Disposition: Home Discharge comment: New patient appointment with Dr. Rosette Coulter in one week Discharge Med Rec/Prescriptions Prescriptions: New Xarelto 10 mg Tablet 15 mg PO BIDWM 21 Days Qty: 31.5 RF: 0 Continued metformin 500 mg tablet 500 mg PO BID RF: 0 atorvastatin 10 mg tablet 10 mg PO BEDTIME RF: 0 clopidogrel 75 mg tablet 75 mg PO DAILY RF: 0 lisinopril-hydrochlorothiazide 20-25 mg tablet 1 tab PO DAILY RF: 0 Provider Discharge Instructions Diet: Low-sodium and Low-cholesterol Activity: as tolerated Oxygen: not indicated Quality VTE Deep Vein Thrombosis/Pulmonary Embolism Present on Admission: Yes
[2018-11-02] MEDS: INSULIN ASPART 100 UNIT/ML INSULN PEN SUBCUT (12:27)
--- NOTE | 2018-11-02 16:18 | CM.DPC ---
DCP: continued: Met with pt and his friend Bhakti Gardner as planned. Introduced self and role. Dr. Luna has just ok'd pt for d/c to home setting after his ECHO results were reviewed and has given him new orders for Xarelto, checked out yesterday by Dr. Guzman as appropriate for pt under his [employer]. 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 He has questions about obtaining his medical records as this is the weekend and Lidia Nation, just starting on the discharge instructions is aware and will address this with him. Pt and Bhakti are currently staying in [place] and will use the pharmacy there rather than going directly to the mail order option. P: d/c this evening as above once all is in place. Pt says he did have a few more questions for Dr. Luna and had thought she was coming back to talk with them....RIAN Nation is aware. OBS status:confirmed: esme Lima
[2018-11-02] MEDS: RIVAROXABAN 10 MG TABLET 15 MG PO (16:35)
--- NOTE | 2018-11-02 17:58 | PC.NURSE ---
Assumed care of pt at 1500, pt resting in bed during bedside hand-off. Denies pain states ice packs to r. chest has resolved r. lung pain. Echo resulted. Discharge order placed by MD. Discharge education provided, Script for Gertrud[facility] given. Pt is to call Dr. Coulter's office on Sunday to set-up f/up appt. Pt verbalized understanding of all d/c instructions. Pt states noting is stored in safe or hospital pharmacy. IV removed, Tele removed. pt dressed and escorted out to personal vehicle in parking lot via w/c by [employer] and pt friend. Pt left in stable condition with all personal belongings and d/c paperwork/script.
== END 2018-11-02 17:45 | disposition home or self-care (01) ==
LOC: ED 19:37 → AC 11-01 07:56
PROVIDERS: Family Medicine; Admitting Provider Nurse Practitioner Adult Health; Emergency Provider Emergency Medicine; Visit Provider Nurse Practitioner Adult Health
DX: I26.99 Other pulmonary embolism without acute cor pulmonale (principal); M54.89 Other dorsalgia; I25.10 Atherosclerotic heart disease of native coronary artery without angina pectoris; E11.9 Type 2 diabetes mellitus without complications; I10 Essential (primary) hypertension; Z79.01 Long term (current) use of anticoagulants; Z79.84 Long term (current) use of oral hypoglycemic drugs
CPT/HCPCS: 36415; 36591; 71046; 71275; 80048; 81003; 81015; 82550; 82962; 83036; 83735; 83880; 84484; 85025; 85379; 85610; 85730; 93306; 93970; 94760; 96361; 96372; 96374; 96375; 99283; 99284; G0378; J1650; J2270; Q9967